=== PATIENT | male | born 1990 | race African-American/Black ===

== ENCOUNTER 2018-01-09 02:58 | Emergency (ER) | payer OTHER ==
[2018-01-09 03:08] VITALS: RESP 16
[2018-01-09] MEDS ORDERED: SODIUM CHLORIDE 0.9% 1,000 ML IV STA (03:37)
[2018-01-09] MEDS ORDERED: diphenhydrAMINE 50 MG/ML 1 ML VIAL IVP STA (03:39)
[2018-01-09] MEDS ORDERED: ACETAMINOPHEN TAB 500 MG TAB PO STA (03:49)
--- NOTE | 2018-01-09 04:00 | ED ---
General Adult HPI <Sydni Brasher P - Last Filed: 01/09/18 06:10> - General Source: patient, RN notes reviewed Mode of arrival: wheelchair Limitations: no limitations <Jovany Tyson - Last Filed: 01/09/18 22:15> - General Chief complaint: Dizziness Stated complaint: dizziness Time Seen by Provider: 01/09/18 03:17 - History of Present Illness Initial comments: 27-year-old male presents to the emergency department for a chief complaint of dizziness 1 hour. Patient states he was at work at [employer], which he started 1 month ago, working with chemicals and hot metal when he started to feel dizzy and short of breath. When patient started experiencing the symptoms he took off his respirator to try to get a deeper breath. Patient states that when he took off his respirator he immediately felt worse. He states he was bending against a wall when his boss told him he shouldn't be near the machinery in that state. Patient went into the bathroom and began to feel nauseous and did vomit one time. Patient denies any nausea at this time or any additional vomiting. Patient states he is still feeling dizzy and has a mild headache. He describes the dizziness as the room is spinning. Patient states his shortness of breath has completely resolved at this time. Patient denies any medical history including any cardiac history. Patient denies using any drugs or alcohol. Patient denies smoking. Patient denies any fevers or chills. Patient denies any symptoms leading up to today. Patient has no other complaints at this time including shortness of breath, chest pain, abdominal pain, nausea or vomiting, headache, or visual changes. (Jovany Tyson) - Related Data Previous Rx's Medication Instructions Recorded Ibuprofen [Motrin] 600 mg PO Q8HR PRN #30 tab 10/29/13 Meclizine [Antivert] 25 mg PO TID #30 tab 01/09/18 Allergies Allergy/AdvReac Type Severity Reaction Status Date / Time prochlorperazine edisylate Allergy Intermediate Nausea Verified 01/09/18 03:08 [From Compazine] prochlorperazine maleate Allergy Intermediate Nausea Verified 01/09/18 03:08 [From Compazine] Review of Systems ROS Other: All systems not noted in ROS Statement are negative. <Sydni Brasher - Last Filed: 01/09/18 06:10> ROS Other: All systems not noted in ROS Statement are negative. <Jovany Tyson P - Last Filed: 01/09/18 22:15> ROS Statement: Those systems with pertinent positive or pertinent negative responses have been documented in the HPI. Past Medical History Additional Past Medical History / Comment(s): migraines History of Any Multi-Drug Resistant Organisms: None Reported Past Surgical History: Orthopedic Surgery Additional Past Surgical History / Comment(s): right shoulder Past Psychological History: No Psychological Hx Reported Smoking Status: Never smoker Past Alcohol Use History: None Reported Past Drug Use History: None Reported <Jovany Tyson P - Last Filed: 01/09/18 22:15> General Exam Limitations: no limitations General appearance: alert, in no apparent distress Head exam: Present: atraumatic, normocephalic, normal inspection Eye exam: Present: normal appearance, PERRL, EOMI. Absent: scleral icterus, conjunctival injection, nystagmus, periorbital swelling ENT exam: Present: normal exam, normal oropharynx, mucous membranes moist, TM's normal bilaterally, normal external ear exam Neck exam: Present: normal inspection, full ROM. Absent: tenderness, meningismus, lymphadenopathy Respiratory exam: Present: normal lung sounds bilaterally. Absent: respiratory distress, wheezes, rales, rhonchi, stridor Cardiovascular Exam: Present: regular rate, normal rhythm, normal heart sounds. Absent: systolic murmur, diastolic murmur, rubs, gallop, clicks GI/Abdominal exam: Present: soft, normal bowel sounds. Absent: distended, tenderness, guarding, rebound, rigid Neurological exam: Present: alert, oriented X3, CN II-XII intact, other (GCS 15) Expanded Neurological exam: Absent: inattentive, memory loss-remote event, memory loss- recent event, ataxia, total aphasia, tremor Patient oriented to: Present: person, place, time Speech: Present: fluid speech Cranial nerves: EOM's Intact: Normal, Nystagmus: Normal, Facial Sensation: Normal Cerebellar function: Finger to Nose: Normal Upper motor neuron: Pronator Drift: Normal Sensory exam: Upper Extremity Light Touch: Normal, Upper Extremity Pin Prick: Normal, Lower Extremity Light Touch: Normal, Lower Extremity Pin Prick: Normal Motor strength exam: RUE: 5, LUE: 5, RLE: 5, LLE: 5 Eye Response: (4) open spontaneously Motor Response: (6) obeys commands Verbal Response: (5) oriented Benita Total: 15 Psychiatric exam: Present: normal affect, normal mood <Jovany Tyson P - Last Filed: 01/09/18 22:15> Vital Signs 01/09/18 01/09/18 01/09/18 03:05 04:58 05:40 Temperature 98.2 F Pulse Rate 51 L 71 Pulse Rate [ 62 Sitting] Pulse Rate [ 68 Standing] Pulse Rate [ 68 Supine] Respiratory 16 16 Rate Blood Pressure 122/64 146/76 Blood Pressure 134/78 [Sitting] Blood Pressure 141/84 [Standing] Blood Pressure 127/74 [Supine] O2 Sat by Pulse 99 99 Oximetry 01/09/18 06:35 Temperature 98.6 F Pulse Rate 64 Pulse Rate [ Sitting] Pulse Rate [ Standing] Pulse Rate [ Supine] Respiratory 16 Rate Blood Pressure 126/80 Blood Pressure [Sitting] Blood Pressure [Standing] Blood Pressure [Supine] O2 Sat by Pulse 98 Oximetry EKG Findings - EKG Comments: EKG Findings:: Sinus bradycardia with a ventricular rate of 56, TX interval 148 , QRS duration 104 <Jovany Tyson P - Last Filed: 01/09/18 22:15> Medical Decision Making - Lab Data Result diagrams: 01/09/18 04:15 01/09/18 04:15 <Sydni Brasher P - Last Filed: 01/09/18 06:10> - Lab Data Result diagrams: 01/09/18 04:15 01/09/18 04:15 <Jovany Tyson P - Last Filed: 01/09/18 22:15> - Medical Decision Making 27-year-old male presents to the emergency department for a chief complaint of shortness of breath and dizziness 2 hours. 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 Patient then took off his respirator and symptoms worsened. He did vomit once in the bathroom. Patient has a pulse rate of 51 and a blood pressure of 122/64. Vitals stable in the emergency department. At presentation to the emergency department patient is no longer experiencing shortness of breath but is still feeling dizzy and has a mild headache. No focal neuro deficits on exam. GCS 15. Chest x-ray shows no acute cardiopulmonary findings Care was passed to Dr Brasher at shift end (Jovany Tyson) - Lab Data Lab Results 01/09/18 01/09/18 01/09/18 Range/Units 04:10 04:15 04:15 WBC 6.1 (3.8-10.6) k/uL RBC 5.21 (4.30-5.90) m/uL Hgb 14.4 (13.0-17.5) gm/dL Hct 42.7 (39.0-53.0) % MCV 81.9 (80.0-100.0) fL MCH 27.7 (25.0-35.0) pg MCHC 33.8 (31.0-37.0) g/dL RDW 14.1 (11.5-15.5) % Plt Count 142 L (150-450) k/uL Neutrophils % 57 % Lymphocytes % 30 % Monocytes % 7 % Eosinophils % 3 % Basophils % 1 % Neutrophils # 3.5 (1.3-7.7) k/uL Lymphocytes # 1.8 (1.0-4.8) k/uL Monocytes # 0.4 (0-1.0) k/uL Eosinophils # 0.2 (0-0.7) k/uL Basophils # 0.0 (0-0.2) k/uL PT (9.0-12.0) sec INR (<1.2) APTT (22.0-30.0) sec Carbon Monoxide, Quant (<10.0) % Sodium (137-145) mmol/L Potassium (3.5-5.1) mmol/L Chloride (98-107) mmol/L Carbon Dioxide (22-30) mmol/L Anion Gap mmol/L BUN (9-20) mg/dL Creatinine (0.66-1.25) mg/dL Est GFR (CKD-EPI)AfAm (>60 ml/min/1.73 sqM) Est GFR (CKD-EPI)NonAf (>60 ml/min/1.73 sqM) Glucose (74-99) mg/dL Calcium (8.4-10.2) mg/dL Total Bilirubin (0.2-1.3) mg/dL AST (17-59) U/L ALT (21-72) U/L Alkaline Phosphatase (38-126) U/L Total Creatine Kinase 392 H (55-170) U/L CK-MB (CK-2) 2.0 (0.0-2.4) ng/mL CK-MB (CK-2) Rel Index 0.5 Troponin I <0.012 (0.000-0.034) ng/mL Total Protein (6.3-8.2) g/dL Albumin (3.5-5.0) g/dL Urine Color Yellow Urine Appearance Clear (Clear) Urine pH 7.0 (5.0-8.0) Ur Specific [place] 1.017 (1.001-1.035) Urine Protein Negative (Negative) Urine Glucose (UA) Negative (Negative) Urine Ketones Trace H (Negative) Urine Blood Negative (Negative) Urine Nitrite Negative (Negative) Urine Bilirubin Negative (Negative) Urine Urobilinogen <2.0 (<2.0) mg/dL Ur Leukocyte Esterase Negative (Negative) 01/09/18 01/09/18 01/09/18 Range/Units 04:15 04:15 05:10 WBC (3.8-10.6) k/uL RBC (4.30-5.90) m/uL Hgb (13.0-17.5) gm/dL Hct (39.0-53.0) % MCV (80.0-100.0) fL MCH (25.0-35.0) pg MCHC (31.0-37.0) g/dL RDW (11.5-15.5) % Plt Count (150-450) k/uL Neutrophils % % Lymphocytes % % Monocytes % % Eosinophils % % Basophils % % Neutrophils # (1.3-7.7) k/uL Lymphocytes # (1.0-4.8) k/uL Monocytes # (0-1.0) k/uL Eosinophils # (0-0.7) k/uL Basophils # (0-0.2) k/uL PT 12.5 H (9.0-12.0) sec INR 1.3 H (<1.2) APTT 27.9 (22.0-30.0) sec Carbon Monoxide, Quant 1.3 (<10.0) % Sodium 140 (137-145) mmol/L Potassium 4.0 (3.5-5.1) mmol/L Chloride 107 (98-107) mmol/L Carbon Dioxide 24 (22-30) mmol/L Anion Gap 9 mmol/L BUN 15 (9-20) mg/dL Creatinine 1.00 (0.66-1.25) mg/dL Est GFR (CKD-EPI)AfAm >90 (>60 ml/min/1.73 sqM) Est GFR (CKD-EPI)NonAf >90 (>60 ml/min/1.73 sqM) Glucose 74 (74-99) mg/dL Calcium 8.6 (8.4-10.2) mg/dL Total Bilirubin 1.6 H (0.2-1.3) mg/dL AST 28 (17-59) U/L ALT 32 (21-72) U/L Alkaline Phosphatase 92 (38-126) U/L Total Creatine Kinase (55-170) U/L CK-MB (CK-2) (0.0-2.4) ng/mL CK-MB (CK-2) Rel Index Troponin I (0.000-0.034) ng/mL Total Protein 6.8 (6.3-8.2) g/dL Albumin 4.0 (3.5-5.0) g/dL Urine Color Urine Appearance (Clear) Urine pH (5.0-8.0) Ur Specific [place] (1.001-1.035) Urine Protein (Negative) Urine Glucose (UA) (Negative) Urine Ketones (Negative) Urine Blood (Negative) Urine Nitrite (Negative) Urine Bilirubin (Negative) Urine Urobilinogen (<2.0) mg/dL Ur Leukocyte Esterase (Negative) Disposition <Sydni Brasher P - Last Filed: 01/09/18 06:10> Is patient prescribed a controlled substance at d/c from ED?: No Time of Disposition: 04:45 <Jovany Tyson P - Last Filed: 01/09/18 22:15> Clinical Impression: Dizziness Disposition: HOME SELF-CARE Condition: Good Instructions: Dizziness (ED) Additional Instructions: Please follow up with primary care in 1-2 days. Please return to the emergency department if you have any worsening symptoms. Prescriptions: Meclizine [Antivert] 25 mg PO TID #30 tab Referrals: Deepti Logan MD [Primary Care Provider] - 1-2 days
--- NOTE | 2018-01-09 04:17 | XR ---
EXAM: XR Chest, 2 Views CLINICAL HISTORY: ITS.REASON XR Reason: difficulty breathing TECHNIQUE: Frontal and lateral views of the chest. COMPARISON: 11/26/17 FINDINGS: Suspect heart size normal allowing for AP technique. No overt edema, consolidation or other acute cardiopulmonary process. IMPRESSION: No acute cardiopulmonary findings.
[2018-01-09 04:31] LABS: Basophils % (A) 1 %; Eosinophils # (A) 0.2 k/uL (0-0.7); Eosinophils % (A) 3 %; HCT 42.7 % (39.0-53.0); HGB 14.4 gm/dL (13.0-17.5); Lymphocytes # (A) 1.8 k/uL (1.0-4.8); Lymphocytes % (A) 30 %; MCH 27.7 pg (25.0-35.0); MCHC 33.8 g/dL (31.0-37.0); MCV 81.9 fL (80.0-100.0); Mean Platelet Volume 8.4; Monocytes # (A) 0.4 k/uL (0-1.0); Monocytes % (A) 7 %; Neutrophils # (A) 3.5 k/uL (1.3-7.7); Neutrophils % (A) 57 %; Platelet Count 142 k/uL (150-450); RBC 5.21 m/uL (4.30-5.90); RDW 14.1 % (11.5-15.5); WBC 6.1 k/uL (3.8-10.6)
[2018-01-09 04:39] LABS: INR 1.3 (<1.2); Partial Thromboplastin Time 27.9 sec (22.0-30.0); Prothrombin Time 12.5 sec (9.0-12.0)
[2018-01-09 04:39] LABS: Appearance,Urine Clear (Clear); Bilirubin,Urine Negative (Negative); Blood,Urine Negative (Negative); Color,Urine Yellow; Glucose,Urine (UA) Negative (Negative); Ketones,Urine Trace (Negative); Leukocyte Esterase,Urine Negative (Negative); Nitrite,Urine Negative (Negative); Protein,Urine Negative (Negative); Specific Gravity,Urine 1.017 (1.001-1.035); Urobilinogen,Urine <2.0 mg/dL (<2.0)
[2018-01-09 04:43] LABS: ALT 32 U/L (21-72); AST 28 U/L (17-59); Alkaline Phosphatase 92 U/L (38-126); Anion Gap 9 mmol/L; Blood Urea Nitrogen 15 mg/dL (9-20); Calcium 8.6 mg/dL (8.4-10.2); Carbon Dioxide 24 mmol/L (22-30); Chloride 107 mmol/L (98-107); Glucose 74 mg/dL (74-99); Sodium 140 mmol/L (137-145); Total Bilirubin 1.6 mg/dL (0.2-1.3); Total Protein 6.8 g/dL (6.3-8.2)
[2018-01-09 04:55] LABS: Creatine Kinase 392 U/L (55-170)
[2018-01-09 05:08] LABS: Troponin I <0.012 ng/mL (0.000-0.034)
[2018-01-09] MEDS ORDERED: MECLIZINE 12.5 MG TAB PO STA (05:34)
[2018-01-09 06:56] VITALS: BP 126/80; PULSE 64; TEMP 98.6
== END 2018-01-09 06:56 | disposition home or self-care (01) ==
LOC: EC 02:58
DX: R42 Dizziness and giddiness (principal); R06.02 Shortness of breath; G43.909 Migraine, unspecified, not intractable, without status migrainosus; R40.2142 Coma scale, eyes open, spontaneous, at arrival to emergency department; R40.2252 Coma scale, best verbal response, oriented, at arrival to emergency department; R40.2362 Coma scale, best motor response, obeys commands, at arrival to emergency department; Z88.8 Allergy status to other drugs, medicaments and biological substances
CPT/HCPCS: 36415; 93005; 80053; 82375; 82550; 82553; 84484; 85025; 85610; 85730; 81003; 71046; 99284; 96374; 96361; J1200

== ENCOUNTER → 2018-03-03 | Outpatient (CLI) | payer OTHER ==
--- NOTE | 2018-03-03 08:28 | MR ---
EXAMINATION TYPE: MR lumbar spine wo con DATE OF EXAM: 03/03/2018 COMPARISON: NONE HISTORY: LUMBAR CONTUSION TECHNIQUE: T1 and T2 axial and sagittal images of the lumbar spine are submitted. FINDINGS: There is no abnormal signal seen within the visualized spinal cord or paraspinal soft tissu es. There are heterogeneous marrow signal changes. At L1-2 there is no disc herniation or canal stenosis. No foraminal encroachment. At L2-3 there is no disc herniation or canal stenosis. No foraminal encroachment. At L3-4 there is no disc herniation or canal stenosis. No foraminal encroachment. At L4-5 there is No disc herniation or canal stenosis. No foraminal encroachment. At L5-S1 there is No disc herniation or canal stenosis. No foraminal encroachment. IMPRESSION: 1. No disc herniation, canal stenosis or foraminal encroachment visualized levels. No degenerative di sc disease. 2. There is diffuse heterogeneity and abnormal appearance to the bone marrow involving all of the vis ualized osseous structures. Correlate for blood dyscrasia, marrow reconversion, osteopenia, or lympho proliferative disorder. Metastasis not excluded.
== END ==
LOC: RADMRIMAIN 06:29
PROVIDERS: ATTEND Emergency Medicine
DX: S30.0XXD Contusion of lower back and pelvis, subsequent encounter (principal)
CPT/HCPCS: 72148

== ENCOUNTER 2019-06-22 19:30 | Emergency (ER) | payer OTHER ==
[2019-06-22 19:46] VITALS: BP 119/72; RESP 18
[2019-06-22] MEDS ORDERED: ACETAMINOPHEN TAB 325 MG TAB PO STA (20:08)
--- NOTE | 2019-06-22 20:45 | XR ---
EXAMINATION TYPE: XR chest 2V DATE OF EXAM: 06/22/2019 COMPARISON: Prior chest x-ray 01/09/2018 HISTORY: Fever and cough TECHNIQUE: Frontal and lateral views of the chest are obtained. FINDINGS: There is no focal air space opacity, pleural effusion, or pneumothorax seen. The cardiac silhouette size is within normal limits. The osseous structures are intact. IMPRESSION: No acute cardiopulmonary process.
[2019-06-22] MEDS ORDERED: OSELTAMIVIR 75 MG CAP PO STA (21:16)
--- NOTE | 2019-06-22 21:21 | ED ---
URI HPI - General Chief Complaint: Upper Respiratory Infection Stated Complaint: Fever Source: patient Mode of arrival: ambulatory Limitations: no limitations - History of Present Illness Initial Comments: 29-year-old male presenting today for chief complaint of cough fevers, diarrhea. Patient states symptoms have been ongoing for the past day. Patient son has similar symptoms aside from the diarrhea. Patient states his childhood vaccinations. Denies any rashes doesn't difficulty breathing or swallowing. Patient states his mild sore throat. Denies abdominal pain. Patient denies any decrease in urine output. Remaining review of systems negative upon arrival patient appears well there is no signs of acute distress - Related Data Previous Rx's Medication Instructions Recorded Ibuprofen [Motrin] 600 mg PO Q8HR PRN #30 tab 10/29/13 Meclizine [Antivert] 25 mg PO TID #30 tab 01/09/18 Oseltamivir [Tamiflu] 75 mg PO BID 5 Days #10 cap 06/22/19 Allergies Allergy/AdvReac Type Severity Reaction Status Date / Time prochlorperazine edisylate Allergy Intermediate Nausea Verified 01/09/18 03:08 [From Compazine] prochlorperazine maleate Allergy Intermediate Nausea Verified 01/09/18 03:08 [From Compazine] Review of Systems ROS Statement: Those systems with pertinent positive or pertinent negative responses have been documented in the HPI. ROS Other: All systems not noted in ROS Statement are negative. Past Medical History Additional Past Medical History / Comment(s): migraines History of Any Multi-Drug Resistant Organisms: None Reported Past Surgical History: Orthopedic Surgery Additional Past Surgical History / Comment(s): right shoulder Past Psychological History: No Psychological Hx Reported Smoking Status: Never smoker Past Alcohol Use History: None Reported Past Drug Use History: None Reported General Exam - General Exam Comments Initial Comments: General: The patient is awake and alert, in no distress Eye: +3 mm pupils are equal, round and reactive to light, extra-ocular movements are intact. No nystagmus. There is normal conjunctiva bilaterally. No signs of icterus. No photophobia Ears, nose, mouth and throat: There are moist mucous membranes and no oral lesions. Oropharynx was not erythematous there is no tonsillar enlargement exudates or lesions. Uvula midline. Tympanic membranes are not erythematous or is no effusions bulging or retraction. No tenderness to palpation of the mastoid. No anterior cervical lymphadenopathy. Rhinorrhea, clear and bilateral nares. No tripoding, no drooling. Neck: The neck is supple, there is no tenderness or JVD. No nuchal rigidity Cardiovascular: There is a regular rate and rhythm. No murmur, rub or gallop is appreciated. Respiratory: Lungs are clear to auscultation, respirations are non-labored, breath sounds are equal. No wheezes, stridor, rales, or rhonchi. No retractions or abdominal breathing. Gastrointestinal: Soft, non-distended, non-tender abdomen without masses or o rganomegaly noted. There is no rebound or guarding present. Bowel sounds are unremarkable. Musculoskeletal: Normal ROM, no tenderness. Strength 5/5. Sensation intact. Radial pulses equal bilaterally 2+. Neurological: A&O x 3. CN II-XII intact grossly, There are no obvious motor or sensory deficits. Coordination appears grossly intact. Speech appears normal, no muffling. Skin: Skin is warm and dry and no rashes or lesions are noted. No extremity edema Psychiatric: Cooperative Limitations: no limitations Course Vital Signs 06/22/19 06/22/19 19:42 21:22 Temperature 103.0 F H 99 F Pulse Rate 84 85 Respiratory 18 Rate Blood Pressure 119/72 O2 Sat by Pulse 98 Oximetry Medical Decision Making - Medical Decision Making 29-year-old male presenting today for chief complaint of fever bodyaches cough diarrhea. Patient appears hydrated physical examination. Patient was febrile on arrival given antipyretics. Patient had soft benign abdomen. Lungs clear no signs of difficulty breathing oxygen on room air. Chest x-ray revealed no focal infiltrates. Patient influenza A positive feels correlates clinically at this time feel he stated for discharge with outpatient primary care follow-up as well as Tamiflu. Patietn aware of return parameters and importance of f/u. Pt tolerating Po intake in room case discussed with attending provider Dr. Osuna who is agreeable to plan to discharge at this time - Lab Data Lab Results 06/22/19 Range/Units 19:47 Influenza Type A RNA Detected H (Not Detectd) Influenza Type B (PCR) Not Detected (Not Detectd) Disposition Clinical Impression: Fever, Influenza Disposition: HOME SELF-CARE Condition: Good Instructions (If sedation given, give patient instructions): Influenza (ED) Additional Instructions: Please use medication as discussed. Please follow-up with family doctor in the next 2 days. Please return to emergency room if the symptoms increase or worsen or for any other concerns. Prescriptions: Oseltamivir [Tamiflu] 75 mg PO BID 5 Days #10 cap Is patient prescribed a controlled substance at d/c from ED?: No Referrals: Deepti Logan MD [Primary Care Provider] - 1-2 days Time of Disposition: 21:20
[2019-06-22 21:23] VITALS: PULSE 85; TEMP 99
== END 2019-06-22 21:23 | disposition home or self-care (01) ==
LOC: EC 19:30
DX: J09.X2 Influenza due to identified novel influenza A virus with other respiratory manifestations (principal); Z88.8 Allergy status to other drugs, medicaments and biological substances
CPT/HCPCS: 71046; 87502; 99283